=== PATIENT | male | born 1975 ===

== ENCOUNTER 2017-11-10 14:00 | Emergency (ER) | payer OTHER ==
[2017-11-10 14:08] VITALS: TEMP 98.1; O2SAT 98
[2017-11-10] MEDS ORDERED: Sodium Chloride 0.9% 1,000 ML IV STA (14:51)
[2017-11-10] MEDS ORDERED: Sodium Chloride 0.9% 1,000 ML ONE (15:01)
[2017-11-10 15:02] LABS: BASO # 0.1 K/uL (0.0-0.2); BASO % 0.6 % (0.0-2.0); EOS % 0.2 % (0.0-4.0); HEMOGLOBIN 13.6 g/dL (12.0-18.0); LYMPH # 1.2 K/uL (1.0-4.3); LYMPH % 12.8 % (20.0-40.0); MEAN CELL VOLUME 88.4 fL (80.0-94.0); MEAN CORPUSCULAR HEMOGLOBIN 30.2 pg (27.0-31.0); MEAN CORPUSCULAR HGB CONC 34.1 g/dL (33.0-37.0); MEAN PLATELET VOLUME 9.4 fL (7.2-11.7); MONO # 0.2 K/uL (0.0-0.8); MONO % 2.5 % (0.0-10.0); NEUT # 7.6 K/uL (1.8-7.0); NEUT % 83.9 % (50.0-75.0); RBC 4.5 Mil/uL (4.40-5.90); RED CELL DISTRIBUTION WIDTH 13.3 % (11.5-14.5); WHITE BLOOD COUNT 9.1 K/uL (4.8-10.8)
--- NOTE | 2017-11-10 15:03 | C.PDOC ---
History Of Present Illness 42 year old male, with no PMHx, presents to the emergency department with complaints of a constant headache x1 day. Headache is frontal, associated with non-bloody and non-bilious vomiting, and photophobia. Patient states symptoms began after drinking alcohol yesterday. Otherwise he denies trauma, fall, LOC, chest pain, SOB, numbness, or motor weakness. Time Seen by Provider: 11/10/17 14:14 Chief Complaint (Nursing): Headache History Per: Patient History/Exam Limitations: no limitations Onset/Duration Of Symptoms: Days Current Symptoms Are (Timing): Still Present Past Medical History Reviewed: Historical Data, Nursing Documentation, Vital Signs Vital Signs: Last Vital Signs Temp 98.1 F 11/10/17 14:03 Pulse 67 11/10/17 14:03 Resp 18 11/10/17 14:03 BP 126/81 11/10/17 14:03 Pulse Ox 98 11/10/17 15:49 - Medical History PMH: Seizures Denies: Chronic Kidney Disease Family History: States: No Known Family Hx - Social History Hx Alcohol Use: Yes Hx Substance Use: No - Immunization History Hx Influenza Vaccination: No Review Of Systems Except As Marked, All Systems Reviewed And Found Negative. Eyes: Positive for: Other (photophobia) Cardiovascular: Negative for: Chest Pain Respiratory: Negative for: Shortness of Breath Gastrointestinal: Positive for: Vomiting (non-bloody, non-bilious) Neurological: Positive for: Headache (frontal). Negative for: Weakness, Numbness, Other (LOC) Physical Exam - Physical Exam Additional Physical Exam Comments: Constitutional: No acute distress. Head: Normocephalic. Atraumatic. Eyes: PERRL. ENT: Moist mucous membranes. Neck: Supple. Cardiovascular: Regular rate. Radial pulse 2+ bilaterally. Chest: No tenderness. Respiratory: Clear to auscultation bilaterally. GI: Soft. Nontender. Nondistended. Back: No CVA tenderness. Musculoskeletal: No tenderness or swelling of extremities. Skin: No rash. Neurologic: Alert, no focal deficit. ED Course And Treatment - Laboratory Results Result Diagrams: 11/10/17 14:58 11/10/17 14:58 O2 Sat by Pulse Oximetry: 98 (RA) Pulse Ox Interpretation: Normal - CT Scan/US CT Head Other Rad Studies (CT/US): Read By Radiologist, Radiology Report Reviewed CT/US Interpretation: FINDINGS: HEMORRHAGE: No intracranial hemorrhage. BRAIN : No mass effect or edema. No atrophy or chronic microvascular ischemic changes. VENTRICLES: Unremarkable. No hydrocephalus. CALVARIUM: Unremarkable. PARANASAL SINUSES: Mild malaria sinus and ethmoid air cell mucosal thickening. . Right for nasal septal deviation. MASTOID AIR CELLS: Unremarkable as visualized. No inflammatory changes. OTHER FINDINGS: None. IMPRESSION: No acute intracranial pathology. Medical Decision Making Medical Decision Making: Impression: Headache Plan: -CT Head -Labs -IV Fluids -Tylenol -Zofran Patient in no distress. No neuro deficit. Steady gait. Discharged home, f/u PMD , return to ED for worsening pain, fever, stiff neck, vision change, vomiting, or any other problem. Disposition - Disposition Disposition: HOME/ ROUTINE Disposition Time: 16:09 Condition: STABLE Instructions: Headache, Adult Forms: [employer] ([place]) - Clinical Impression Clinical Impression: Headache - Scribe Statement The provider has reviewed the documentation as recorded by the Dayan Harris Provider Attestation: All medical record entries made by the Dayan were at my direction and personally dictated by me. I have reviewed the chart and agree that the record accurately reflects my personal performance of the history, physical exam, medical decision making, and the department course for this patient. I have also personally directed, reviewed, and agree with the discharge instructions and disposition.
[2017-11-10 15:29] LABS: ALB/GLOB RATIO 1.5 (1.0-2.1); ALBUMIN 4.5 g/dL (3.5-5.0); ALT/SGPT 27 U/L (21-72); AST/SGOT 28 U/L (17-59); BLOOD UREA NITROGEN 11 mg/dL (9-20); GFR NON-AFRICAN AMERICAN > 60; LIPASE 110 U/L (23-300)
--- NOTE | 2017-11-10 15:35 | CT ---
Date of service: 11/10/2017 PROCEDURE: CT HEAD WITHOUT CONTRAST. HISTORY: headache COMPARISON: None available. TECHNIQUE: Axial computed tomography images were obtained through the head/brain without intravenous contrast. Radiation dose: Total exam DLP = 1104.3 mGy-cm. This CT exam was performed using one or more of the following dose reduction techniques: Automated exposure control, adjustment of the mA and/or kV according to patient size, and/or use of iterative reconstruction technique. FINDINGS: HEMORRHAGE: No intracranial hemorrhage. BRAIN: No mass effect or edema. No atrophy or chronic microvascular ischemic changes. VENTRICLES: Unremarkable. No hydrocephalus. CALVARIUM: Unremarkable. PARANASAL SINUSES: Mild malaria sinus and ethmoid air cell mucosal thickening. . Right for nasal septal deviation. MASTOID AIR CELLS: Unremarkable as visualized. No inflammatory changes. OTHER FINDINGS: None. IMPRESSION: No acute intracranial pathology.
[2017-11-10 16:09] VITALS: BP 122/74; PULSE 64; RESP 16
== END 2017-11-10 17:01 | disposition home or self-care (01) ==
LOC: C.ER 14:00
DX: R51 Headache (principal)
CPT/HCPCS: 70450; 80053; 80320; 83690; 83735; 85025; 96361; 96374; 99284; J2405; J7030

== ENCOUNTER 2017-11-11 12:58 | Emergency (ER) | payer OTHER ==
[2017-11-11 13:12] VITALS: PULSE 57; TEMP 98.6; O2SAT 100
[2017-11-11] MEDS ORDERED: Sodium Chloride 0.9% 1,000 ML IV ONE (14:21)
[2017-11-11] MEDS ORDERED: Sodium Chloride 0.9% 1,000 ML ONE (14:51)
[2017-11-11 14:55] LABS: BASO % 0.6 % (0.0-2.0); EOS # 0.1 K/uL (0.0-0.7); EOS % 1.5 % (0.0-4.0); HEMOGLOBIN 13.2 g/dL (12.0-18.0); LYMPH # 1.5 K/uL (1.0-4.3); MEAN CELL VOLUME 88.6 fL (80.0-94.0); MEAN CORPUSCULAR HEMOGLOBIN 29.7 pg (27.0-31.0); MEAN CORPUSCULAR HGB CONC 33.5 g/dL (33.0-37.0); MEAN PLATELET VOLUME 8.9 fL (7.2-11.7); MONO # 0.4 K/uL (0.0-0.8); MONO % 5.5 % (0.0-10.0); NEUT # 4.8 K/uL (1.8-7.0); NEUT % 70.4 % (50.0-75.0); RBC 4.43 Mil/uL (4.40-5.90); WHITE BLOOD COUNT 6.8 K/uL (4.8-10.8)
--- NOTE | 2017-11-11 14:56 | C.PDOC ---
History Of Present Illness 42 years old male with no past medical problems, medication use, allergies to medications, and no PMD, presents to ED for complaints of headache associated with blurry vision and neck pain that began yesterday. Patient states headache radiated from neck to head, and neck pain worsens with movement. Denies similar symptoms in the past. Denies SOB, abdominal pain, chest pain, or any other physical complaints. Time Seen by Provider: 11/11/17 13:52 Chief Complaint (Nursing): Headache History Per: Patient History/Exam Limitations: no limitations Onset/Duration Of Symptoms: Days (1) Current Symptoms Are (Timing): Still Present Preceeding Symptoms: Visual Disturbances Associated Symptoms: Blurred Vision Recent travel outside of the [place]: No Past Medical History Reviewed: Historical Data, Nursing Documentation, Vital Signs Vital Signs: Last Vital Signs Temp 98.6 F 11/11/17 13:08 Pulse 57 L 11/11/17 13:08 Resp 18 11/11/17 13:08 BP 119/73 11/11/17 13:08 Pulse Ox 100 11/11/17 16:15 - Medical History PMH: Seizures Surgical History: No Surg Hx Family History: States: No Known Family Hx - Social History Hx Alcohol Use: Yes Hx Substance Use: No - Immunization History Hx Tetanus Toxoid Vaccination: No Hx Influenza Vaccination: No Hx Pneumococcal Vaccination: No Review Of Systems Constitutional: Negative for: Fever, Chills Cardiovascular: Negative for: Chest Pain Gastrointestinal: Negative for: Nausea, Vomiting, Abdominal Pain, Diarrhea Musculoskeletal: Positive for: Neck Pain Skin: Negative for: Rash Neurological: Positive for: Headache. Negative for: Weakness, Numbness, Dizziness Physical Exam - Physical Exam Appears: Non-toxic, No Acute Distress Skin: Normal Color, Warm, Dry, No Rash Head: Atraumatic, Normacephalic Eye(s): bilateral: Normal Inspection, PERRL, EOMI Oral Mucosa: Moist Neck: Normal ROM, Supple Chest: Symmetrical, No Tenderness Cardiovascular: Rhythm Regular, No Murmur Respiratory: Normal Breath Sounds, No Decreased Breath Sounds, No Rales, No Rhonchi, No Wheezing Gastrointestinal/Abdominal: Bowel Sounds (Active ), Soft, No Tenderness, No Guarding, No Rebound Extremity: Normal ROM, No Deformity Extremity: Bilateral: Atraumatic, Normal Color And Temperature, Normal ROM Neurological/Psych: Oriented x3, Normal Speech Gait: Steady ED Course And Treatment - Laboratory Results Result Diagrams: 11/11/17 14:46 11/11/17 14:46 O2 Sat by Pulse Oximetry: 100 (RA) Pulse Ox Interpretation: Normal Medical Decision Making Medical Decision Making: Administered Tylenol, Reglan, Toradol, and IV fluids. Ordered blood work and urinalysis. Disposition Counseled Patient/Family Regarding: Studies Performed, Diagnosis - Disposition Disposition: HOME/ ROUTINE Disposition Time: 16:17 Condition: STABLE Prescriptions: Ibuprofen [Motrin] 1 tab PO TID PRN #30 tab PRN Reason: Pain Instructions: Headache, Adult (DC) Forms: [employer] ([place]) - POA Present On Arrival: None - Clinical Impression Clinical Impression: Headache - Scribe Statement The provider has reviewed the documentation as recorded by the Scribleana Hicks All medical record entries made by the Scribe were at my direction and personally dictated by me. I have reviewed the chart and agree that the record accurately reflects my personal performance of the history, physical exam, medical decision making, and the department course for this patient. I have also personally directed, reviewed, and agree with the discharge instructions and disposition.
[2017-11-11 15:00] LABS: URINE BILIRUBIN NEGATIVE (NEGATIVE); URINE BLOOD NEGATIVE (NEGATIVE); URINE CLARITY Clear (Clear); URINE COLOR Straw (YELLOW); URINE GLUCOSE (UA) NORMAL (Normal); URINE LEUKOCYTE ESTERASE NEG Leu/uL (Negative); URINE PROTEIN NEGATIVE (NEGATIVE); URINE UROBILINOGEN NORMAL mg/dL (0.2-1.0)
[2017-11-11 15:10] LABS: BLOOD UREA NITROGEN 11 mg/dL (9-20); CALCIUM 9.1 mg/dl (8.6-10.4); GFR NON-AFRICAN AMERICAN > 60
[2017-11-11 16:29] VITALS: BP 113/68; RESP 17
== END 2017-11-11 16:34 | disposition home or self-care (01) ==
LOC: C.ER 12:58
DX: R51 Headache (principal)
CPT/HCPCS: 80048; 81001; 85025; 96361; 96374; 96375; 99284; J1885; J2765; J7030